=== PATIENT | female | born 1995 | race Caucasian/White ===

== ENCOUNTER 2022-12-21 17:26 | Emergency (ER) | payer OTHER ==
[2022-12-21 17:46] VITALS: BP 132/79; PULSE 94; O2SAT 100
[2022-12-21] MEDS ORDERED: BACTRIM DS TABLET PO STA (18:02)
--- NOTE | 2022-12-21 18:08 | ERPHSYRPT ---
- History of Present Illness Time Seen by Provider: 12/21/22 17:28 Source: patient Exam Limitations: no limitations Patient Subjective Stated Complaint: Nasal pain/swelling and redness Triage Nursing Assessment: Patient ambulated back to ED and transferred self to bed. Patient A+O X 3. Patient's skin pink, warm and dry. Patient complains of redness, swelling to nose for 2 days. Patient complains of pain 7/10. Patient has raised area noted inside right nasal passage with yellow drainage. Patient's entire nose on outside noted to be red, warm and swollen. Physician History: 27 years old healthy female presented in the ER with 2 days history of gradually increasing swelling and pain in the nose. Reports dull aching 7/10 intensity pain with no obvious nasal discharge. No fever or chills reported. Denies pulling here or any trauma to the nose. No headache, visual disturbance, neck pain, sore throat or other URI symptoms reported. Timing/Duration: gradual onset, days (2) Severity: moderate ENT Location: nose Prearrival Treatment: over the counter meds Associated Symptoms: nasal congestion/drainage, No fever Allergies/Adverse Reactions: Penicillins Allergy (Verified 12/21/22 17:38) Hx Tetanus, Diphtheria Vaccination/Date Given: No Hx Influenza Vaccination/Date Given: No Hx Pneumococcal Vaccination/Date Given: No Immunizations Up to Date: Yes Travel Risk - International Travel Have you traveled outside of the country in past 3 weeks: No - Coronavirus Screening Are you exhibiting any of the following symptoms?: No Close contact with a COVID-19 positive Pt in past 14-21 Days: No - Vaccine Status Have you recieved a Covid-19 vaccination: No - Review of Systems Constitutional: No Symptoms Eyes: No Symptoms Ears, Nose, & Throat: Nose Pain Respiratory: No Symptoms Cardiac: No Symptoms Musculoskeletal: No Symptoms Skin: Cellulitis Neurological: No Symptoms Endocrine: No Symptoms Hematologic/Lymphatic: No Symptoms - Past Medical History Pertinent Past Medical History: No Neurological History: No Pertinent History ENT History: No Pertinent History Cardiac History: No Pertinent History Respiratory History: No Pertinent History Endocrine Medical History: No Pertinent History Musculoskeletal History: No Pertinent History GI Medical History: No Pertinent History History: No Pertinent History Psycho-Social History: No Pertinent History Female Reproductive Disorders: No Pertinent History - Past Surgical History Past Surgical History: Yes Neuro Surgical History: No Pertinent History Cardiac: No Pertinent History Respiratory: No Pertinent History Gastrointestinal: Appendectomy Genitourinary: No Pertinent History Musculoskeletal: No Pertinent History Female Surgical History: No Pertinent History - Social History Smoking Status: Current some day smoker Exposure to second hand smoke: Yes Drug Use: marijuana Patient Lives Alone: No - Female History Hx Last Menstrual Period: currently Hx Now: No - Nursing Vital Signs Nursing Vital Signs: Initial Vital Signs Temperature 98.6 F 12/21/22 17:40 Pulse Rate 94 H 12/21/22 17:40 Respiratory Rate 18 12/21/22 17:40 Blood Pressure 132/79 12/21/22 17:40 O2 Sat by Pulse Oximetry 100 12/21/22 17:40 Pain Scale Pain Intensity 7 - Physical Exam General Appearance: no apparent distress, alert Eye Exam: bilateral eye: normal inspection, PERRL, EOMI Ear Exam: bilateral ear: auricle normal, canal normal, TM normal Nasal Exam: No normal inspection (Diffuse erythema/swelling from tape to bridge of nose. Warm, tender, blanchable.) Neck Exam: normal inspection, non-tender, supple, full range of motion Cardiovascular/Respiratory Exam: normal breath sounds, regular rate/rhythm Neurologic Exam: alert, oriented x 3, cooperative, gis analyst II-XII nml as tested, normal mood/affect, nml cerebellar function, nml station & gait, sensation nml Skin Exam: normal color SpO2 Interpretation: normal SpO2: 100 O2 Delivery: Room Air Ordered Tests: Medication Summary Discontinued Medications Generic Name Dose Route Start Last Admin Trade Name Freq PRN Reason Stop Dose Admin Trimethoprim/Sulfamethoxazole 2 tab 12/21/22 18:02 Smz/Tmp Ds Tablet 1 Tablet PO 12/21/22 18:03 STAT STA - Progress Progress: unchanged Progress Note: 12/21/22 18:08 27 years old healthy female presented in the ER with 2 days history of gradually increasing swelling and pain in the nose. Reports dull aching 7/10 intensity pain with no obvious nasal discharge. No fever or chills reported. Denies pulling here or any trauma to the nose. No headache, visual disturbance, neck pain, sore throat or other URI symptoms reported. Patient does not want any pain medication. Patient does have cellulitis/erysipelas, no signs of severe infection with fever, rapid spread/systemic infection signs. Negative neuro exam. Started on double dose of Bactrim and outpatient follow-up recommended. Discussed signs symptoms of worsening needing return to ER which she seems understanding. Counseled pt/family regarding: diagnosis, need for follow-up Medical Desision Making - Risk of complications The pt has a mod risk of morbidity or mortality based on: Need for prescription drug management - Departure Departure Disposition: Home Clinical Impression: Nose cellulitis Condition: Stable Critical Care Time: No Referrals: AARON ALCANTARA MD [ACTIVE STAFF] - Follow up/PCP as directed (Tomorrow for reevaluation) Instructions: Cellulitis and Erysipelas (Skin Infections) Additional Instructions: Take Tylenol/ibuprofen as needed. Follow-up with primary care for reevaluation in 1 to 2 days. Return to ER for any worsening. Prescriptions: Smz/Tmp Ds Tablet [Bactrim Ds Tablet] 2 udtab PO BID #28 tablet
[2022-12-21] MEDS ORDERED: BACTRIM DS TABLET PO ONE (18:12)
== END 2022-12-21 18:30 | disposition home or self-care (01) ==
LOC: ED 17:26
DX: J34.0 Abscess, furuncle and carbuncle of nose (principal); Z28.310 Unvaccinated for COVID-19; Z72.0 Tobacco use
CPT/HCPCS: 99281; A9270-GY